=== PATIENT | female | born 1945 | race African-American/Black ===

== ENCOUNTER 2016-04-17 10:22 | Day surgery (SDC) | payer MEDICARE, OTHER ==
--- NOTE | ~2016-04-17 | EGD ---
EGD REPORT [facility] [address] [address] NAME: RODOLFO CROWELL : [birth year] STATUS : REG [facility]#: [id number] AGE: 70 ADM/REG DATE : 04/17/16 MR#: [id number] REPORT SERV DATE: 04/17/16 DICTATED BY: JACKY LOBO DATE: 04/17/16 REPORT STATUS : Draft TRANSCRIBED BY: [employer] DATE: 04/17/16 [facility] Patient Name: Rodolfo Crowell Date of : 1945 Attending MD: JACKY LOBO MD Procedure Date No Time: 04/17/2016 Procedure: Upper GI endoscopy Indications: Dysphagia, Heartburn, Suspected esophageal reflux, Nausea Referring MD: JOSE COURTNEY Medicines: as per anesthesia Complications: No immediate complications. Procedure: Pre-Anesthesia Assessment: - ASA Grade Assessment: III - A patient with severe systemic disease. After obtaining informed consent, the endoscope was passed under direct vision. Throughout the procedure, the patient's blood pressure, pulse, and oxygen saturations were monitored continuously. The GIF [id number] was introduced through the mouth, and advanced to the third part of duodenum. The upper GI endoscopy was accomplished without difficulty. The patient tolerated the procedure well. Findings: The examined esophagus was normal. The scope was withdrawn. Dilation was performed with a Kee dilator with no resistance at 44 Fr. Localized moderate inflammation characterized by erythema was found in the gastric antrum. Biopsies were taken with a cold forceps for histology. Localized moderate inflammation characterized by erythema and friability was found in the gastric body. The cardia and gastric fundus were normal on retroflexion. Localized mild inflammation characterized by erythema was found in the duodenal bulb. Impression: - Normal esophagus. Dilated. - Gastritis. Biopsied. - Gastritis. - Duodenitis. Recommendation: - Await pathology results. - Follow an antireflux regimen. - Continue present medications. Procedure Code(s): --- Professional --- EGD REPORT [address] [place]. [address] NAME: RODOLFO CROWELL : [birth year] STATUS : REG [facility]#: [id number] AGE: 70 ADM/REG DATE : 04/17/16 MR#: [id number] REPORT SERV DATE: 04/17/16 DICTATED BY: JACKY LOBO. DATE: 04/17/16 REPORT STATUS : Draft TRANSCRIBED BY: [employer] DATE: 04/17/16 [id number], Esophagogastroduodenoscopy, flexible, transoral; with biopsy, single or multiple [id number], Dilation of esophagus, by unguided sound or bougie, single or multiple passes Diagnosis Code(s): --- Professional --- K29.70, Gastritis, unspecified, without bleeding K29.80, Duodenitis without bleeding R13.10, Dysphagia, unspecified R12, Heartburn R11.0, Nausea CPT copyright 2013 [employer]. All rights reserved. The codes documented in this report are preliminary and upon custom shoemaker review may be revised to meet current compliance requirements. JACKY LOBO MD 04/17/2016 1:52 PM This report has been signed electronically. Number of Addenda: 0 Note Initiated On: 04/17/2016 1:19 PM Scope Withdrawal Time 0 hours 0 minutes 0 seconds [address] [id number]
[~2016-04-17 10:22] MED LIST: ABILIFY5 PO; ACET500CAP PO; AMITIZA24 PO; AMITIZA8 MCG PO; ANASPAZ0.125 MG PO; ASPERCREME 10% EX; ASPERCREME T; ASPERCREME102 EX; BC POWDER PO; BENICAR HCT1 TA2 PO; BENICAR HCT1 TAB PO; CADUET5 MG/20 MG PO; CELEBREX2 PO; DIOVAN HC1 PO; DIOVAN HCT160 MG/25 PO; FERROUS SULF325 M1 PO; FISH-EPA1000 MG PO; FLEX PO; KRISTALOSE10 GM PO; LAM250 PO; LINZESS 145 M145 MCG PO; LORT7 PO; LORTAB 5 PO; LORTAB10 PO; MINERAL OIL PO; MO30L PO; MOMUD PO; NEUR300 PO; NORCO1 TA2 PO; NORV5 PO; OXYCON20 PO; P125 PO; PCET PO; PHILLIPS MOM311 M1 PO; PREMARIN 1.251.25 MG OR; PREMARIN 1.251.25 MG PO; PRILO PO; PRILOSEC40 MG PO; SPIRO50 PO; T PO; TEKTUR150 PO; V5 PO; VERELAN PM300 MG PO; ZOCOR10 PO; ZOCOR20 PO; ZYDONE1 TA1 PO
== END 2016-04-17 23:59 | disposition home or self-care (01) ==
LOC: DMU 10:22
PROVIDERS: Internal Medicine Gastroenterology
PROC: 0D757ZZ Dilation of Esophagus, Via Natural or Artificial Opening (ICD-10-PCS; principal; 2016-04-17 11:30)
PROC: 0DB68ZX Excision of Stomach, Via Natural or Artificial Opening Endoscopic, Diagnostic (ICD-10-PCS; 2016-04-17 11:30)
DX: K29.70 Gastritis, unspecified, without bleeding (principal); I10 Essential (primary) hypertension; E78.00 Pure hypercholesterolemia, unspecified; G47.33 Obstructive sleep apnea (adult) (pediatric); M19.90 Unspecified osteoarthritis, unspecified site; Z98.1 Arthrodesis status; Z79.818 Long term (current) use of other agents affecting estrogen receptors and estrogen levels
CPT/HCPCS: 88305